=== PATIENT | male | born 1975 | race Caucasian/White ===

== ENCOUNTER 2018-01-27 11:41 | Emergency (ER) | payer BC, OTHER ==
[2018-01-27 12:08] VITALS: BP 158/100
[2018-01-27] MEDS ORDERED: Ibuprofen TAB* 600 MG PO ONE (12:15)
--- NOTE | 2018-01-27 12:21 | UC ---
Knee Pain HPI - HPI Summary HPI Summary: 42-year-old male comes in with a chief complaint of left knee pain after a fall today at work. Patient slipped and fell on a set of stairs or 6 or 7 steps this morning. He felt a twisting and his left knee and he had a great deal of pain. Also has abrasions on the right forearm. He was able to walk initially the knee but with a little bit time the pain increased. Now he has severe pain when he tries to bear weight upon palpation of the knee joint. No prior injury to the knee. The right forearm and elbow have good range of motion of the patient's not concerned about any potential broken bones on the right arm. - History of Current Complaint Chief Complaint: UCLowerExtremity Stated Complaint: LEFT KNEE INJURY - W/C Time Seen by Provider: 01/27/18 11:59 Pain Intensity: 7 - Allergies/Home Medications Allergies/Adverse Reactions: Allergies Allergy/AdvReac Type Severity Reaction Status Date / Time metal Allergy Swelling Uncoded 01/27/18 12:04 Home Medications: Home Medications NK [No Home Medications Reported] 01/27/18 [History Confirmed 01/27/18] PMH/Surg Hx/FS Hx/Imm Hx Previously Healthy: Yes - Surgical History Surgical History: Yes Surgery Procedure, Year, and Place: abdominal surgery - Family History Known Family History: Negative: Diabetes - Social History Alcohol Use: Daily Alcohol Amount: 6 mixed drinks a day Substance Use Type: None Smoking Status (MU): Former Smoker Review of Systems All Other Systems Reviewed And Are Negative: Yes Constitutional: Positive: Negative Skin: Positive: Other - abrasion rt forearm Eyes: Positive: Negative ENT: Positive: Negative Respiratory: Positive: Negative Cardiovascular: Positive: Negative Gastrointestinal: Positive: Negative Motor: Positive: Decreased ROM - left knee secondary to pain Neurovascular: Positive: Negative Musculoskeletal: Positive: Other: - see hpi Neurological: Positive: Negative Psychological: Positive: Negative Is Patient Immunocompromised?: No Physical Exam Triage Information Reviewed: Yes Appearance: Well-Appearing, Well-Nourished, Pain Distress - mild Vital Signs: Initial Vital Signs Temp 98.1 F 01/27/18 12:03 Pulse 92 01/27/18 12:03 Resp 18 01/27/18 12:03 BP 158/100 01/27/18 12:03 Pulse Ox 98 01/27/18 12:03 Vital Signs Reviewed: Yes Eye Exam: Normal Eyes: Positive: Conjunctiva Clear Neck: Positive: Supple Respiratory: Positive: No respiratory distress Musculoskeletal: Positive: Other: - Left knee has swelling. It is diffusely tender to palpation. I am unable to detect test for laxity due to the patient' s level of pain. No skin break on the knee. Neurological: Positive: Alert, Muscle Tone Normal Psychological Exam: Normal Psychological: Positive: Age Appropriate Behavior Skin: Positive: Other - superficial abrasion rt forearm Knee Pain Course/Dx - Course Course Of Treatment: Order Information: KNEE LEFT 4+ VWS. Accession Number: [id number]. CPT: 86556. HISTORY: pain s/p trauma. COMPARISONS: None. VIEWS : 4 , Frontal, lateral, axial, and oblique views of the left knee. FINDINGS: BONE DENSITY: Normal. BONES: There is no displaced fracture. JOINTS: There is no arthropathy. There is no suprapatellar joint effusion or. lipohemarthrosis. ALIGNMENT: There is no dislocation. SOFT TISSUES: Unremarkable. OTHER FINDINGS: None. IMPRESSION: NO ACUTE OSSEOUS INJURY. IF SYMPTOMS PERSIST, RECOMMEND REPEAT IMAGING. . <Electronically signed by Alec Castrejon MD in [facility]> 01/27/18 [id number]. I discussed the x-ray report with the patient and his partner. No fracture seen on x-ray. Patient complains of instability of the knee. I'm concerned about internal derangement. Here in clinic we put an Chandrakant wrap and knee immobilizer and is neurovascularly intact after placement BY nursing. Also given crutches. The overall plan is ice elevation and immobilization rest and anti-inflammatories. With a follow-up with orthopedics. - Differential Dx/Diagnosis Provider Diagnoses: LEFT KNEE PAIN Discharge - Sign-Out/Discharge Documenting (check all that apply): Patient Departure All imaging exams completed and their final reports reviewed: Yes - Discharge Plan Condition: Stable Disposition: HOME Patient Education Materials: Knee Pain (ED), Swollen Knee Joint (ED) Referrals: Malvin Odom MD [Medical Doctor] - Additional Instructions: FOLLOW UP WITH ORTHOPEDICS. GET RECHECKED FOR ANY WORSENING OF YOUR CONDITION OR QUESTIONS OR CONCERNS. - Billing Disposition and Condition Condition: STABLE Disposition: Home
== END 2018-01-27 14:05 | disposition home or self-care (01) ==
LOC: UCCORT 11:41
DX: M25.562 Pain in left knee (principal); S50.811A Abrasion of right forearm, initial encounter; Z91.09 Other allergy status, other than to drugs and biological substances; Z87.891 Personal history of nicotine dependence; W01.0XXA Fall on same level from slipping, tripping and stumbling without subsequent striking against object, initial encounter; Y93.9 Activity, unspecified; Y92.9 Unspecified place or not applicable; Y99.0 Civilian activity done for income or pay
CPT/HCPCS: 99203; A9270-GY; G0463